=== PATIENT | female | born 2005 | race Caucasian/White ===

== ENCOUNTER 2025-01-23 14:41 | Emergency (ER) | payer OTHER ==
[~2025-01-23] VITALS: Ht 160 cm; Wt 83.9 kg
[2025-01-23 14:49] VITALS: TEMP 98.4
[2025-01-23 16:28] LABS: CORONAVIRUS COVID-19 AG NEGATIVE (NEGATIVE); INFLUENZA A AG NEGATIVE (NEGATIVE); INFLUENZA B AG NEGATIVE (NEGATIVE); STREPTOCOCCUS GRP A ANTIGEN NEGATIVE (NEGATIVE)
[2025-01-23 16:59] VITALS: PULSE 72; RESP 18; O2SAT 100
== END 2025-01-23 17:01 | disposition home or self-care (01) ==
LOC: ER 14:43
DX: R05.9 Cough, unspecified (principal); J02.8 Acute pharyngitis due to other specified organisms; Z11.52 Encounter for screening for COVID-19
CPT/HCPCS: 83518; 87070; 99282

== ENCOUNTER 2025-07-23 18:38 | Emergency (ER) | payer OTHER ==
[~2025-07-23] VITALS: Ht 160 cm; Wt 83.9 kg
[2025-07-23 19:18] LABS: BASOPHILS % 0.3 % (0.0-1.0); EOSINOPHILS % 2.5 % (0.0-6.0); LYMPHOCYTES % 36.7 % (18.0-39.1); MONOCYTES % 11.2 % (4.4-11.3); NEUTROPHILS % 49.0 % (38.7-80.0); RED CELL DISTRIBUTION WIDTH 12.8 % (11.7-14.4)
[2025-07-23] MEDS: ASPIRIN 81 MG CHEW TAB PO ONE (19:30)
[2025-07-23 19:32] LABS: EST GLOMERULAR FILTRATION RATE 127 ML/MIN (>=60)
[2025-07-23] MEDS ORDERED: IOPAMIDOL 370 MG/ML 100 ML INFUS..BTL INJ ONE (19:37)
[2025-07-23 21:30] VITALS: PULSE 73; RESP 18; TEMP 98.6; O2SAT 98
== END 2025-07-23 21:47 | disposition home or self-care (01) ==
LOC: ER 19:05
DX: R06.02 Shortness of breath (principal); R07.1 Chest pain on breathing
CPT/HCPCS: 36415; 71045; 71260; 80053; 82550; 84484; 84702; 85025; 85379; 99284; Q9967; 93005